=== PATIENT | female | born 1985 | race Caucasian/White ===

== ENCOUNTER → 2018-01-23 | Outpatient (CLI) | payer BC ==
--- NOTE | 2018-01-23 13:32 | Diagnostic Imaging Report ---
PROCEDURE: CT abdomen and pelvis with contrast. TECHNIQUE: Multiple contiguous axial images were obtained through the abdomen and pelvis after administration of intravenous contrast. INDICATION: Hematuria. COMPARISON: None. FINDINGS: Included portions of the lung bases are clear. CT abdomen: Although the ureters cannot be followed in their entirety, no calculi are seen along the expected course of the ureters. No renal calculi are seen on either side on this postcontrast exam. No focal renal mass-type lesions are identified. The spleen, pancreas, adrenal glands, and liver have a normal CT appearance. There is no loculated fluid collection, free fluid, nor free air within the abdomen. No abnormal mesenteric or retroperitoneal adenopathy is seen. Small bowel loops are nondistended. Normal appendix is identified. Bony structures show no acute abnormalities. CT pelvis: Urinary bladder is grossly unremarkable. There is no loculated fluid collection, free fluid, nor free air within the pelvis. No abnormal lymph nodes are seen. Bony structures show no acute abnormalities. IMPRESSION: 1. Unremarkable CT of the abdomen and pelvis. No acute abnormalities are identified. Dictated by: Dictated on workstation # [id number]
--- NOTE | 2018-01-23 13:37 | Diagnostic Imaging Report ---
INDICATION: Hypothyroidism. TECHNIQUE: Grayscale sonographic images of the thyroid gland. CORRELATION STUDY: None FINDINGS: RIGHT LOBE: Enlarged at 5.6 x 2.2 x 2.4 cm. LEFT LOBE: Enlarged at 5.6 x 2.4 x 1.7 cm. Very heterogeneous echotexture throughout both lobes of the thyroid gland as well as isthmus. A definitive mass lesion not definitively demonstrated. However, mass could easily go undetected owing to the heterogeneous echotexture. No appreciable abnormal vascularity. IMPRESSION: Enlarged thyroid gland demonstrating a very heterogeneous echotexture. A definitive mass lesion not visualized but could easily go undetected on this study. If further assessment is desired, nuclear medicine thyroid scan and uptake may be of additional benefit. (Normal gland size: 4-5 x 2 x 2 cm) Dictated by: Dictated on workstation # [id number]
== END ==
LOC: RAD 12:14
PROVIDERS: ATTEND Family Medicine
DX: R31.9 Hematuria, unspecified (principal); E05.00 Thyrotoxicosis with diffuse goiter without thyrotoxic crisis or storm
CPT/HCPCS: 74177; 76536